=== PATIENT | female | born 1980 | race American Indian/Alaskan Native ===

== ENCOUNTER 2017-04-26 08:53 | Emergency (ER) | payer BC, OTHER ==
[2017-04-26 09:00] VITALS: BP 128/84
--- NOTE | 2017-04-26 11:45 | Emergency Department Report ---
<VIJI BECERRA J - Last Filed: 04/26/17 11:45> - General Chief Complaint: Upper Respiratory Infection Stated Complaint: FLU Time Seen by Provider: 04/26/17 11:45 Source: patient Mode of arrival: Ambulatory Limitations: No Limitations - Related Data Previous Rx's Medication Instructions Recorded Last Taken Type Ferrous Sulfate [Feosol 325 MG tab] 325 mg PO BID #60 tablet 12/12/12 Unknown Rx HYDROcodone/APAP 5-325 [Delta 1 each PO Q6HR PRN #30 tablet 12/12/12 Unknown Rx 5/325 mg] [id number]/Iron Fum/Folic/Docusate 1 each PO QDAY #30 tablet 12/05/13 Unknown Rx [ 19 Tablet] Promethazine [Phenergan] 25 mg PO Q6H PRN #20 tablet 12/05/13 Unknown Rx Cetirizine HCl [ZyrTEC] 10 mg PO QAM 14 Days #14 tab.rapdis 04/26/17 Unknown Rx Fluticasone [Flonase] 1 spray NS QDAY 14 Days #1 bottle 04/26/17 Unknown Rx Ibuprofen [Motrin 600 MG tab] 600 mg PO Q6H PRN #12 tablet 04/26/17 Unknown Rx Allergies Allergy/AdvReac Type Severity Reaction Status Date / Time Sulfa (Sulfonamide Allergy Swelling Verified 12/11/12 08:58 Antibiotics) ED Review of Systems ROS: Stated complaint: FLU Other details as noted in HPI ED Past Medical Hx - Past Medical History Hx Hypertension: No Hx Congestive Heart Failure: No Hx Diabetes: No Hx Deep Vein Thrombosis: No Hx Renal Disease: No Hx Sickle Cell Disease: No Hx Seizures: No Hx Asthma: Yes (last inhaler use winter) Hx COPD: No - Surgical History Additional Surgical History: x1 - Social History Smoking Status: Never Smoker Substance Use Type: None - Medications Home Medications: Home Medications Medication Instructions Recorded Confirmed Last Taken Type Ferrous Sulfate [Feosol 325 MG tab] 325 mg PO BID #60 tablet 12/12/12 Unknown Rx HYDROcodone/APAP 5-325 [Delta 1 each PO Q6HR PRN #30 tablet 12/12/12 Unknown Rx 5/325 mg] [id number]/Iron Fum/Folic/Docusate 1 each PO QDAY #30 tablet 12/05/13 Unknown Rx [ 19 Tablet] Promethazine [Phenergan] 25 mg PO Q6H PRN #20 tablet 12/05/13 Unknown Rx Cetirizine HCl [ZyrTEC] 10 mg PO QAM 14 Days #14 tab.rapdis 04/26/17 Unknown Rx Fluticasone [Flonase] 1 spray NS QDAY 14 Days #1 bottle 04/26/17 Unknown Rx Ibuprofen [Motrin 600 MG tab] 600 mg PO Q6H PRN #12 tablet 04/26/17 Unknown Rx ED Physical Exam - General Limitations: No Limitations ED Course Vital Signs 04/26/17 08:58 Temperature 98.4 F Pulse Rate 110 H Respiratory 18 Rate Blood Pressure 128/84 O2 Sat by Pulse 100 Oximetry Critical care attestation.: If time is entered above; I have spent that time in minutes in the direct care of this critically ill patient, excluding procedure time. ED Disposition Clinical Impression: Acute viral syndrome, URI with cough and congestion Disposition: TO HOME OR SELFCARE Condition: Stable Instructions: Viral Syndrome (ED) Additional Instructions: Please increase her fluid intake to 2-3 L of fluid to include upper juice, water and cranberry juice Take medication as prescribed A few symptoms worsen U can return to the emergency room otherwise follow-up with your primary care physician in 2-3 days Prescriptions: Cetirizine HCl [ZyrTEC] 10 mg PO QAM 14 Days #14 tab.rapdis Fluticasone [Flonase] 1 spray NS QDAY 14 Days #1 bottle Ibuprofen [Motrin 600 MG tab] 600 mg PO Q6H PRN #12 tablet PRN Reason: Pain Referrals: PRIMARY CARE, [Primary Care Provider] - 2-3 Days [facility] [Outside] - 2-3 Days Forms: Work/School Release Form(ED) <DOLORES SHARP - Last Filed: 04/26/17 12:43> - History of Present Illness Initial Comments: Patient reports flulike symptoms and she went to urgent care yesterday and they told her that she was dehydrated but they didn't have a flu test. She says she was told to come to the emergency room to get rehydrated. Patient also requested to have the tests with history of that she has the flu. She is afebrile at present but reports that she had fever yesterday and today she took fever aquarist, she is having generalized body ache at 710 worse with moving around. Exposure to someone sick but does not know if they had the flu. Reports sore throat, headache. Denies any neck pain or stiffness. Denies any nausea or vomiting. Denies any abdominal or back pain. Denies any urinary burning frequency or urgency. She said they did a urinalysis at the urgent care yesterday and she did not have an infection. MD Complaint: fever, cough, sore throat, rhinorrhea, nasal congestion Onset/Timin -: days(s) Severity: severe Severity scale (0 -10): 7 Quality: aching Consistency: constant Worsens With: activity Context: sick contacts Associated Symptoms: fever, chills, myalgias, cough. denies: stiff neck, chest pain, shortness of breath, rash, confusion, right sweats, weight loss Treatments Prior to Arrival: "cold medicine" ED Review of Systems Comment: All other systems reviewed and negative Constitutional: chills, fever Eyes: denies: eye pain, eye discharge ENT: throat pain, congestion. denies: ear pain, hearing loss, epistaxis Respiratory: denies: cough, orthopnea, shortness of breath, SOB with exertion, SOB at rest, stridor, wheezing Cardiovascular: denies: chest pain, palpitations, edema, syncope Gastrointestinal: denies: abdominal pain, nausea, vomiting, diarrhea, constipation Genitourinary: denies: urgency, dysuria, frequency, hematuria, discharge Musculoskeletal: myalgia. denies: back pain, joint swelling, arthralgia Skin: denies: rash Neurological: denies: headache, weakness, numbness, paresthesias, confusion, abnormal gait, vertigo ED Past Medical Hx - Past Medical History Previous Medical History?: Yes - Surgical History Past Surgical History?: Yes - Family History Family history: no significant ED Physical Exam - General General appearance: alert, in no apparent distress - Head Head exam: Present: atraumatic, normocephalic, normal inspection - Eye Eye exam: Present: normal appearance, PERRL, EOMI. Absent: nystagmus, periorbital swelling, periorbital tenderness Pupils: Present: normal accommodation - ENT ENT exam: Present: normal exam, normal orophraynx, mucous membranes moist, TM's normal bilaterally, normal external ear exam - Neck Neck exam: Present: normal inspection, full ROM, other (no C-spine tenderness). Absent: tenderness, meningismus, lymphadenopathy, thyromegaly - Respiratory Respiratory exam: Present: normal lung sounds bilaterally. Absent: respiratory distress, chest wall tenderness, accessory muscle use - Cardiovascular Cardiovascular Exam: Present: normal rhythm, tachycardia, normal heart sounds. Absent: systolic murmur, diastolic murmur - GI/Abdominal GI/Abdominal exam: Present: soft, normal bowel sounds. Absent: distended, tenderness, guarding, rebound, rigid - Extremities Exam Extremities exam: Present: normal inspection, full ROM, normal capillary refill , other (no clubbing, cyanosis or edema. +2 pulses all extremities and no neurovascular compromise). Absent: tenderness, pedal edema, joint swelling, calf tenderness - Back Exam Back exam: Present: normal inspection, full ROM, other (ambulates without any difficulties). Absent: tenderness, CVA tenderness (R), CVA tenderness (L), muscle spasm, paraspinal tenderness, vertebral tenderness, rash noted - Neurological Exam Neurological exam: Present: alert, oriented X3, normal gait, reflexes normal. Absent: motor sensory deficit - Psychiatric Psychiatric exam: Present: normal affect, normal mood - Skin Skin exam: Present: warm, dry, intact, normal color. Absent: rash ED Course Vital Signs 04/26/17 08:58 Temperature 98.4 F Pulse Rate 110 H Respiratory 18 Rate Blood Pressure 128/84 O2 Sat by Pulse 100 Oximetry Vital Signs 04/26/17 04/26/17 08:58 12:23 Temperature 98.4 F Pulse Rate 110 H 98 H Respiratory 18 Rate Blood Pressure 128/84 O2 Sat by Pulse 100 Oximetry - Reevaluation(s) Reevaluation #1: 04/26/17 12:14 She received Motrin 800 mg by mouth for pain Reevaluation #2: 04/26/17 12:36 Patient has rated 4 cups of juice and tolerated well without any nausea or vomiting. She was given Motrin 800 mg which relieved her pain. ED Medical Decision Making - Medical Decision Making ED course: Patient reports that she's been having flulike symptoms. She is afebrile and able to tolerate oral liquids without any nausea or vomiting. Patient was given Motrin 800 mg by mouth for bodyaches which relieved her pain. I discussed with her that based on the physical findings she has a viral upper respiratory tract infection with cough and congestion and will be placed on Zyrtec Flonase and Motrin and to increase her fluid intake and rest and follow-up with her primary care physician and 2-3 days. She voiced understanding and discharged home in stable condition. ED Disposition Is pt being admited?: No Does the pt Need Aspirin: No
[2017-04-26] MEDS ORDERED: MOTRIN PO ONE (11:49)
== END 2017-04-26 12:54 | disposition home or self-care (01) ==
LOC: ED 08:53
DX: B34.9 Viral infection, unspecified (principal); J06.9 Acute upper respiratory infection, unspecified; Z88.2 Allergy status to sulfonamides
CPT/HCPCS: 99282